=== PATIENT | male | born 1950 | race Caucasian/White ===

== ENCOUNTER 2022-05-09 09:40 | Outpatient (CLI) | payer MEDICARE | END 2022-05-09 09:41 | disposition home or self-care (01) | LOC: NM 09:40 | PROVIDERS: ATTEND Urology | DX: C61 Malignant neoplasm of prostate (principal); S32.401D Unspecified fracture of right acetabulum, subsequent encounter for fracture with routine healing | CPT/HCPCS: 78306; A9503 ==

== ENCOUNTER 2023-05-31 06:51 | Outpatient (CLI) | payer MEDICARE | END 2023-05-31 06:52 | disposition home or self-care (01) | LOC: CT 06:51 | PROVIDERS: ATTEND Urology | DX: C61 Malignant neoplasm of prostate (principal); K76.0 Fatty (change of) liver, not elsewhere classified; N32.89 Other specified disorders of bladder; M47.816 Spondylosis without myelopathy or radiculopathy, lumbar region; I99.8 Other disorder of circulatory system | CPT/HCPCS: 74177; 78306; 82565; A9503 ==

== ENCOUNTER 2025-07-14 12:04 | Outpatient (CLI) | payer MEDICARE | END 2025-07-14 12:05 | disposition home or self-care (01) | LOC: PET 12:04 | PROVIDERS: ATTEND Nurse Practitioner Family | DX: C61 Malignant neoplasm of prostate (principal) | CPT/HCPCS: 78815; A9595 ==